=== PATIENT | female | born 1950 | race Caucasian/White ===

== ENCOUNTER → 2019-07-09 | Outpatient (CLI) | payer OTHER | END | disposition home or self-care (01) | LOC: PCVCCLINIC 15:00 | PROVIDERS: ATTEND Internal Medicine | DX: I25.10 Atherosclerotic heart disease of native coronary artery without angina pectoris (principal); R93.1 Abnormal findings on diagnostic imaging of heart and coronary circulation; E78.5 Hyperlipidemia, unspecified; K21.9 Gastro-esophageal reflux disease without esophagitis; F41.9 Anxiety disorder, unspecified | CPT/HCPCS: 93005; G0463 ==

== ENCOUNTER → 2019-07-17 | Outpatient (CLI) | payer OTHER ==
--- NOTE | 2019-07-17 14:33 | PCVCIMAG ---
APPROVED REPORT Study performed: 07/17/2019 10:58:55 EXAM: Comprehensive 2D, Doppler, and color-flow Echocardiogram Patient Location: Echo lab Room #: 3Status: routine BSA: 1.70 HR: 61 bpmBP: 152/70 mmHg Rhythm: NSR Other Information Study Quality: Adequate Risk Factors: Cardiac Risk Factors: Elevated CA Score Indications CAD 2D Dimensions IVSd: 9.60 (7-11mm)LVOT Diam: 19.00 (18-24mm) LVDd: 37.65 mm PWd: 9.08 (7-11mm)Ascending Ao: 29.42 (22-36mm) LVDs: 25.07 (25-40mm) Left Atrium: 36.24 (27-40mm) Aortic Root: 28.49 mm LV Single Plane 4CH: 70.38 % LV Single Plane 2CH: 70.60 % Biplane EF: 70.1 % Volumes Left Atrial Volume (Systole) Single Plane 4CH: 57.77 mLSingle Plane 2CH: 38.39 mL LA ESV Index: 29.00 mL/m2 Aortic Valve AoV Peak Neri.: 1.62 m/s AO Peak Gr.: 10.52 mmHgLVOT Max P.19 mmHg LVOT Max V: 1.02 m/s YESENIA Vmax: 1.70 cm2 Mitral Valve E/A Ratio: 1.1 MV Decel. Time: 240.16 ms MV E Max Neri.: 1.10 m/s MV A Neri.: 0.96 m/s IVRT: 76.12 ms TDI E/Lateral E': 13.75E/Medial E': 13.75 Medial E' Neri.: 0.08 m/s Lateral E' Neri.: 0.08 m/s Pulmonary Valve PV Peak Neri.: 1.03 m/sPV Peak Gr.: 4.27 mmHg Pulmonary Vein P Vein S: 0.55 m/sP Vein A: 0.26 m/s P Vein D: 0.53 m/sP Vein A Dur.: 124.6 msec P Vein S/D Ratio: 1.04 Tricuspid Valve RAP Estimate: 7.00 mmHg Left Ventricle The left ventricle is normal size. There is normal LV segmental wall motion. There is normal left ventricular wall thickness. Left ventricular systolic function is normal. The left ventricular ejection fraction is within the normal range. LVEF is 65-70%. Moderate diastolic dysfunction is present (pseudonormal filling). Right Ventricle The right ventricle is normal size. The right ventricular systolic function is normal. Atria The left atrium size is normal. The right atrium size is normal. Aortic Valve The aortic valve is normal in structure. No aortic regurgitation is present. There is no aortic valvular stenosis. Mitral Valve The mitral valve is normal in structure. Trace to mild mitral regurgitation. No evidence of mitral valve stenosis. Tricuspid Valve The tricuspid valve is normal in structure. There is no tricuspid valve regurgitation noted. Pulmonic Valve The pulmonary valve is normal in structure. There is no pulmonic valvular regurgitation. Great Vessels The aortic root is normal in size. The ascending aorta is normal in size. IVC is normal in size and collapses >50% with inspiration. Pericardium There is no pericardial effusion. <Conclusion> The left ventricle is normal size. LVEF is 65-70%. The aortic valve is normal in structure. The mitral valve is normal in structure. Trace to mild mitral regurgitation. The tricuspid valve is normal in structure. The pulmonary valve is normal in structure. There is no pericardial effusion.
== END | disposition home or self-care (01) ==
LOC: PCVCIMAG 10:44
PROVIDERS: ATTEND Internal Medicine
DX: I34.0 Nonrheumatic mitral (valve) insufficiency (principal); I25.10 Atherosclerotic heart disease of native coronary artery without angina pectoris
CPT/HCPCS: 93306